=== PATIENT | female | born 1975 | race Caucasian/White ===

== ENCOUNTER 2017-01-31 08:40 | Emergency (ER) | payer BC ==
[~2017-01-31] VITALS: Ht 160 cm; Wt 86.1 kg
[~2017-01-31 08:40] MED LIST: CALCTAB5 PO; PRENTAB26 PO; RANI150T3 PO
[2017-01-31 08:49] VITALS: Ht 160 cm; Wt 86.1 kg
[2017-01-31] MEDS ORDERED: ACET-1256 PO (09:08)
[2017-01-31] MEDS ORDERED: IBUP-1050 PO (09:08)
[2017-01-31] MEDS ORDERED: KETOROLAC TROMETHAMINE 60 MG/2 ML VIAL IM STA (09:23)
[2017-01-31] MEDS ORDERED: DIAZEPAM 5MG TAB PO STA (09:23)
--- NOTE | 2017-01-31 10:47 | EMERGENCY ROOM VISIT NOTE ---
History First contact with patient: 09:03 Chief Complaint: LEG PAIN,LEG INJURY Stated Complaint: LEG, HIP, & BACK PAIN (RIGHT) - SCIATIC History of Present Illness The patient is a 41 year old female who presents to the Emergency Room with complaints of low back pain on the right side that radiates down her buttock and down the leg to the ankle. She describes the pain as a burning and tingling , sharp shooting pain that originates in her right buttock and shoots down the leg, constant, worse with movement, better with rest, currently rates as 10/10. She has been taking ibuprofen and Tylenol for her pain without relief. She reports she has been dealing with this pain for the past 2-3 months, and has been treated with steroids by her PCP, she finished this course one week ago and felt improved at the time. She started physical therapy last week and has been doing these exercises. She states that her pain became more severe yesterday, and this morning his pain was so severe that she felt she was unable to walk. She denies any numbness or weakness of the extremities, denies the leg going out on her or falls, bowel or bladder dysfunction, saddle paresthesias , abdominal pain, diarrhea or constipation, urinary symptoms, or rash. Review of Systems A complete 10 point review of systems was reviewed with the patient with pertinent positives and negatives as per history of present illness. All else were negative. Social History Smoking Status: Former Smoker Current/Historical Medications Scheduled Meloxicam (Mobic), 1 TAB PO DAILY Scheduled PRN Acetaminophen (Tylenol), 500 MG PO UD PRN for Pain Diazepam (Valium), 1 TAB PO TID PRN for Muscle Spasms Ibuprofen (Advil), 800 MG PO UD PRN for PAIN AND INFLAMMATION Physical Exam Vital Signs Date Time Temp Pulse Resp B/P (MAP) Pulse Ox O2 Delivery O2 Flow Rate FiO2 01/31/17 12:12 36.8 87 18 142/93 98 01/31/17 12:01 87 18 142/93 98 Room Air 01/31/17 10:41 73 15 130/63 100 Room Air 01/31/17 08:49 36.8 78 18 133/78 96 Room Air Physical Exam VITAL SIGNS - Vital signs and nursing notes were reviewed. GENERAL - Pleasant and cooperative, in noticeable discomfort throughout the exam. NECK - FROM of the cervical spine without pain. No midline tenderness to palpation ABDOMEN - Abdominal contour is normal without pulsations or visible masses. BS normoactive all four quadrants. No tenderness, palpable masses, hepatosplenomegaly, or ascites noted. MUSCULOSKELETAL - ROM of the lumbar spine region was limited due to pain. Pt was uncomfortable on the exam table. Pt made slow deliberate movements when asked to change position. No step-off deformities were palpated down the thoracic or lumbar spines. There is no tenderness to Palpation of the thoracic or lumbar spine, there is mild tenderness to the right lumbar paraspinal muscle distribution. There is reproducible tenderness to palpation across the right iliac spine, with point tenderness of the lateral gluteus muscle with moderate spasm noted. NEUROLOGIC - REFLEXES: +2 patellar reflexes B/L, +2 Achilles reflexes B/L. SENSORY: No sensory defects noted to the extremities utilizing light touch for evaluation. CEREBELLAR: Pt able to perform rapid alternating movements of the feet. EXTREMITIES - Range of Motion - No tremors, ticks, or fasciculations of the lower extremities noticed during inspection. FROM of the lower extremities. No clonus noted with PROM of the lower extremities bilaterally. Positive straight leg raise on the right. Pt able to perform straight leg raise on the left without any difficulty. Full range of motion of the hip joint without any tenderness. Pt had + 5/5 strength appreciated in the bilateral lower extremities against examiner's resistance. VASCULAR - Capillary refill of the great toe was brisk. No mottling or blanching of the extremities present. + 2 dorsalis pedis pulses palpated bilaterally. Medical Decision & Procedures Medications Administered Medications (Trade) Dose Ordered Sig/Agusto Route Start Time Stop Time Status Last Admin Dose Admin Ketorolac Tromethamine (Toradol Inj) 60 mg NOW STAT IM 01/31/17 09:23 01/31/17 09:25 DC 01/31/17 09:36 60 MG Diazepam (Valium Tab) 10 mg NOW STAT PO 01/31/17 09:23 01/31/17 09:25 DC 01/31/17 09:35 10 MG Medical Decision CC: Patient presenting with complaint of back pain/right leg pain Differential Diagnosis: Includes, but not limited to sciatica, lumbar radiculopathy, lumbar strain/sprain, disc herniation, foraminal stenosis, cauda equina syndrome, among others. Medication Reconciliation: I attest that I have personally reviewed the patient' s current medication list. Vital signs review: I reviewed the patient's vital signs and interpret them as follows: T: Afebrile; BP: Normotensive; HR: Within normal limits; RR: Within normal limits; Pulse Ox: Within normal limits on room air. Blood pressure screening: The patient was found to have normal blood pressure on screening and does not require follow-up for repeat blood pressure check. Summary: Patient was evaluated at bedside, history and physical exam performed. Patient is alert and oriented, no acute distress but is quite uncomfortable during the exam, especially with movement. There is tenderness of the right paraspinous muscles of the lower back and point tenderness over the right gluteus. Positive straight leg raise on the right. Neurologic exam is intact with normal sensation, normal strength, normal reflexes bilaterally in the lower extremities. There are no red flag symptoms or exam findings to indicate a need for MRI at this time. I do not suspect cauda equina syndrome. Patient reports she has already had x-ray imaging of her lower back and hip, I do not feel she warrants repeat imaging at this time, she has not had any new injuries to her lower back and this is a chronic ongoing problem. Orders were placed at bedside for IM Toradol, PO Valium to treat pain and muscle spasm. Patient discussed with Dr. Kirk, who agrees with my assessment and plan. Patient reassessed multiple times throughout ED stay, she reports that her pain is much improved, now rates as a 5/10 down from 10/10. She has been up ambulating to the bathroom without difficulty. I updated the patient on plan for discharge home, and encouraged her to continue following up with her PCP and keep her appointments for physical therapy. I also gave the patient strict return precautions should her symptoms worsen, she verbalized understanding. Prescriptions for Valium and Mobic were provided to the patient, and she was instructed on their use. The patient was discharged home in stable condition and ambulatory. Head Trauma GCS Score: 15 Medication Reconcilliation Current Medication List: was personally reviewed by me Blood Pressure Screening Patient's blood pressure: Normal blood pressure Impression Primary Impression: Right-sided low back pain with sciatica Departure Information Dispostion Home / Self-Care Condition GOOD Prescriptions Diazepam (VALIUM) 10 Mg Tab 1 TAB PO TID Y for Muscle Spasms for 4 Days, #12 TAB Prov: Ashley Weller, MARCIO 01/31/17 Meloxicam (MOBIC) 15 Mg Tab 1 TAB PO DAILY for 14 Days, #14 TAB 2 Refills Prov: NithinAshley CRNP 01/31/17 Referrals No Doctor, Assigned (PCP) Patient Instructions ED Back Care Tips, ED Exercises Lumbar Muscles, ED Sciatica, My [facility] Additional Instructions Take it easy for the next few days, no strenuous activity, heavy lifting, or bending/twisting motions, to allow your back to rest. Alternate heat and ice for comfort. After heat, you may do gentle stretching and massage to the low back. Mobic as prescribed once a day for the next two weeks to treat your pain and inflammation in your back. Do not take other NSAIDs , such as ibuprofen, Advil, Aleve, aspirin, etc., while you are taking this medication. Valium muscle relaxer as prescribed, as needed for muscle tightness and spasms. This may make you drowsy. Do not drive or drink alcohol while taking. Follow up with your PCP in the next few days for further management. You should continue your physical therapy unless otherwise directed by your provider. Please return to the ER if any problems with bowel or bladder function, numbness in your groin, high fevers, severe abdominal pain or worsening back pain, or if loss of feeling/movement of legs. Work Instructions Return To Work: 1 day Problem Qualifiers Primary Impression: Right-sided low back pain with sciatica Chronicity: chronic Sciatica laterality: sciatica of right side Qualified Codes: M54.41 - Lumbago with sciatica, right side; G89.29 - Other chronic pain
[2017-01-31] MEDS ORDERED: MELO15TA4 PO (12:02)
[2017-01-31] MEDS ORDERED: DIAZ10TA3 PO (12:02)
[2017-01-31 12:12] VITALS: BP 142/93; PULSE 87; TEMP 36.8; O2SAT 98
== END 2017-01-31 12:13 | disposition home or self-care (01) ==
LOC: C.EDB 08:42 → C.EDA 12:13
DX: M54.41 Lumbago with sciatica, right side (principal); G89.29 Other chronic pain; Z87.891 Personal history of nicotine dependence

== ENCOUNTER → 2017-05-09 | Day surgery (SDC) | payer OTHER ==
[2017-04-11 15:41] VITALS: Ht 160 cm; Wt 83.6 kg
[~2017-05-09] VITALS: Ht 160 cm; Wt 83.6 kg
[~2017-05-09] MED LIST changes: +BCPILLS PO; -CALCTAB5 PO; +GABA-113 PO; +IOPAMIDOL INJ 61% 15 ML VIAL ONE; +LIDOCAINE HCL 1% MPF 5 ML VIAL ONE; -PRENTAB26 PO; -RANI150T3 PO; +SODIUM CHLORIDE 0.9% INJ 10 ML VIAL ONE
--- NOTE | 2017-05-09 14:08 | History & Physical Bridge - [place] ---
H&P Re-Evaluation Bridge Note: I have examined the patient, reviewed the History & Physical and in the interval since the performance of the History & Physical I have noted the following changes of clinical significance: No changes noted
--- NOTE | 2017-05-09 14:28 | [facility] Post Operative Brief Note ---
Immediate Operative Summary Operative Date May 09, 2017. 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 John Perdomo Shredding Machine Operator Surgeon(s) 0 Estimated Blood Loss 0 Findings Consistent with Post-Op Diagnosis Specimens none Drains None Anesthesia Type Local Complication(s) none Disposition Disposition:
--- NOTE | 2017-05-09 14:30 | Discharge Instructions ---
Discharge Instructions Date of Service May 09, 2017. Visit Reason for Visit: Lumbar Radiculopathy Discharge Discharge Diagnosis / Problem: right leg pain Discharge Goals Goal(s): Decrease discomfort, Improve function Medications Stopped Medications Name(s): no blood thinners Activity Recommendations Activity Limitations: resume your previous activity Anesthesia . Post Anesthesia Instructions: If you have had General Anesthesia or IV Sedation: * Do not drive today. * Resume driving when surgeon permits. * Do not make important decisions or sign legal documents today. * Call surgeon for: 1. Temperature elevations greater than 101 degrees F. 2. Uncontrollable pain. 3. Excessive bleeding. 4. Persistent nausea and vomiting. 5. Medication intolerance (nausea, vomiting or rash). * For nausea and vomiting use only clear liquids such as: tea, soda, bouillon until nausea subsides, then gradually increase diet as tolerated. * If you have any concerns or questions, call your surgeon's office. If physician is unavailable and it is an emergency, call 911 or go to the nearest emergency room. . Diet Recommendations Recommended Home Diet: resume previous diet Procedures Procedures Performed: Lumbar Epidural Steroid Injection Pending Studies Studies pending at discharge: no Medical Emergencies . Who to Call and When: Medical Emergencies: If at any time you feel your situation is an emergency, please call 911 immediately. . Non-Emergent Contact Non-Emergency issues call your: Specialist . . "Provider Documentation" section prepared by Rajiv Perdomo. .
--- NOTE | 2017-05-09 14:48 | OPERATIVE REPORT ---
DATE OF OPERATION: 05/09/2017 PREOPERATIVE DIAGNOSIS: L4-L5 herniated nucleus pulposus with a right lower extremity radiculopathy. POSTOPERATIVE DIAGNOSIS: Same. PROCEDURE: Right paramedian L5-S1 intralaminar epidural steroid injection under fluoroscopic guidance. INDICATIONS: The patient is a 41-year-old white female who has struggled with radicular pain since November. She has a classic L5 dermatomal distribution pain related to herniation at L4-L5, impacting upon the L5-S1 nerve roots, on the right side. She has plateaued with physical therapy and presents today for an epidural injection to provide her with relief. PHYSICAL EXAMINATION: Pleasant female moving comfortably and slowly. She has limitations with extension and pain inhibition with straight leg testing of her right lower extremity. She has heightened sensation of the S1 dermatome intact at L4-L5. CONSENT: Verbal and written consent was obtained from the patient. Risks and benefits were reviewed. Risks include but are not limited to epidural abscess, epidural hematoma, allergic reaction, dural puncture. The patient wishes to proceed. DESCRIPTION OF PROCEDURE: The patient was taken back to the special procedures room of the [facility] where she was maintained in a prone position. Backside was cleansed with Betadine x3 and a dry sterile dressing was applied. Fluoroscope was used to identify the L5-S1 intralaminar space. Overlying skin on the right side was then anesthetized with 4 mL of lidocaine 1% with 25 gauge 1/2-inch needle. A 22 gauge 4-1/4 inch Tuohy needle was then directed down towards the intralaminar space. It was advanced under lateral fluoroscopic guidance and loss of resistance was noted at a depth of 10 cm. Isovue-300 contrast 1 mL was injected in which showed nice cephalad spread into the L4-L5 region. She then underwent injection after negative aspiration of 40 mg of Depo-Medrol and 4 mL of preservative free sodium chloride, which reproduced a familiar transient radicular sensation down the leg. DISPOSITION: 1. The patient is taken out into the discharge recovery area where she will be discharged home once discharge criteria are met. 2. Follow up in the [facility] office in 4 weeks' time. I attest to the content of the Intraoperative Record and any orders documented therein. Any exception s are noted below.
[2017-05-09 14:53] VITALS: BP 117/79; PULSE 85; O2SAT 98
== END | disposition home or self-care (01) ==
LOC: X.SURG 13:19
PROVIDERS: ATTEND Physical Medicine & Rehabilitation
DX: M51.26 Other intervertebral disc displacement, lumbar region (principal); Z87.891 Personal history of nicotine dependence